=== PATIENT | male | born 1955 | race Caucasian/White ===

== ENCOUNTER 2017-10-16 19:31 | Outpatient (RCR) | payer MEDICARE ==
[~2017-10-16 19:31] MED LIST: ASPI-816; ATOR40TA24 PO; DOCU-416 PO; HYDR-385 PO; LEVO-85 PO; MELA3TAB31 PO; METF-420 PO; NAPR220C12 PO; ONDA4TAB PO; OXYC5TAB38 PO; PHEN200T32 PO; PIOG30TA3 PO; TAMS0.4C70 PO
[2017-10-17] MEDS ORDERED: IOPAMIDOL 76% 75 ML INFUS BTL 75 ML ONE (11:20)
[2017-10-17] MEDS ORDERED: IOPAMIDOL 76% 50 ML INFUS BTL 50 ML ONE (11:20)
--- NOTE | 2017-10-17 13:53 | RADIOLOGY IMAGING REPORT ---
[place] [facility] [place] Ellis Naidu : 1955 MR: [id number] V: [id number] EXAM DATE: ORDERING PHYSICIAN: GIANA GRAY TECHNOLOGIST: Location: [facility] Patient: Ellis Naidu : 1955 Visit/Account:[id number] Date of Sevice: 10/17/2017 ABDOMEN/PELVIS W/WO CONTRAST HISTORY: Gross hematuria, kidney stones TECHNIQUE: Axial images acquired through the abdomen/pelvis both with and without IV contrast.. Sarah nal and sagittal reformatting also performed. Dose Lowering Technique One of the following dose optimization techniques was utilized in the performance of this exam: Autom ated exposure control; adjustment of the mA and/or kV according to the patient's size; or use of an i terative reconstruction technique. Specific details can be referenced in the facility's radiology C T exam operational policy. CONTRAST: 125 mL Isovue-370 COMPARISON: September 29, 2016 FINDINGS: Visualized lung bases: There are moderate coronary artery vascular calcifications Hepatobiliary: Postsurgical changes from a cholecystectomy. Along the dome of the liver there is a 1.4 cm hypoattenuating lesion that does not appear to represent simple cyst. This was not well appre ciated on the prior CT due to lack of intravenous contrast. Spleen: Negative. Adrenals: Negative. Pancreas: Negative. Kidneys ureters and bladder: There are two nonobstructing calculi upper pole calyces of the right kid alvaro measuring two and 3 mm. There is an additional 4 to 5 mm nonobstructing calculus lower pole of t he right kidney. There are two 2 mm nonobstructing calculi lower pole calyx of the left kidney There is a large amount of air noted within the urinary bladder. The bladder wall is slightly thicke nilesh. There also appears to be a small amount of pneumatosis within the left-sided the bladder wall. Bladder is distended to the level the umbilicus. There is also a fluid fluid level within the bladd er suggesting a possible component of blood. Genitalia: There are coarse calcifications within the prostate gland GI: There are postsurgical changes at the right-sided the colon and in several loops of small bowel along the anterior upper abdomen. Vessels/spaces/nodes: Negative. Bones/soft tissues: There is a small right inguinal hernia containing fat. There Are spondylotic ch anges lumbar spine is a small. Small umbilical hernia containing fat Additional findings: None pertinent. IMPRESSION: Post surgical changes from a cholecystectomy. There is a 1.4 cm indeterminate hypoattenuating lesion along the dome of the liver. This could be fu rther evaluated with MR with and without contrast Nonobstructing calculi in the renal collecting systems Large amount of air noted within the urinary bladder. This could be related to recent instrumentatio n although the differential diagnosis would include a vesicle colic fistula or infection with gas-for shweta organism. There is a small amount of air also noted within the irregularly thickened bladder wa ll. There is a fluid fluid level within the bladder suggesting a possible component of blood. Postsurgical changes of the bowel as described above Small right inguinal hernia containing fat and small umbilical hernia containing fat Report Dictated By: Grazyna Swift MD at 10/17/2017 1:27 PM Report E-Signed By: Grazyna Swift MD at 10/17/2017 1:50 PM WSN:[email or web address]
== END 2017-10-17 18:00 | disposition home or self-care (01) ==
LOC: CT 19:31
PROVIDERS: ATTEND Urology
DX: N20.0 Calculus of kidney (principal); N39.0 Urinary tract infection, site not specified; R33.8 Other retention of urine; R31.0 Gross hematuria; Z90.49 Acquired absence of other specified parts of digestive tract; K76.89 Other specified diseases of liver; K40.90 Unilateral inguinal hernia, without obstruction or gangrene, not specified as recurrent; K42.9 Umbilical hernia without obstruction or gangrene
CPT/HCPCS: 36415; 74178; 82565; Q9967

== ENCOUNTER → 2017-11-12 | Outpatient (CLI) | payer MEDICARE ==
[~2017-11-12] MED LIST changes: -ASPI-816; +ASPI-870; +IOPAMIDOL 76% 75 ML INFUS BTL 75 ML ONE
--- NOTE | 2017-11-12 09:35 | RADIOLOGY IMAGING REPORT ---
[place] [facility] [place] Ellis Naidu : 1955 MR: [id number] V: [id number] EXAM DATE: [id number] ORDERING PHYSICIAN: GIANA GRAY TECHNOLOGIST: Location: [facility] Patient: Ellis Naidu : 1955 Visit/Account:[id number] Date of Sevice: 11/12/2017 CT abdomen with and without IV contrast CT pelvis with and without IV contrast History: Incomplete bladder emptying. Urinary tract infections. COMPARISON STUDIES: CT abdomen and pelvis 10/17/2017 TECHNIQUE: Axial CT images were obtained through the abdomen and pelvis prior to and during injecti on of nonionic iodinated intravenous contrast. Reformatted coronal and sagittal images were also obta ined. Imaging of the abdomen and pelvis was performed in the portal venous/nephrogram phase of the co ntrast bolus. Contrast: 75 ml of Isovue-370 IV contrast. One of the following dose optimization techniques was utilized in the performance of this exam: Autom ated exposure control; adjustment of the mA and/or kV according to the patient's size; or use of an i terative reconstruction technique. Specific details can be referenced in the facility's radiology C T exam operational policy. FINDINGS: Chest bases: Negative Liver: Normal. Spleen: size is normal. Gallbladder and bile ducts: Cholecystectomy. Normal sized bile ducts. Pancreas: negative Adrenal glands: negative Kidneys: Two right kidney midpole stones are nonobstructing, the largest measuring 4 mm. Two punctat e stones in the left kidney lower pole are nonobstructing. No renal mass or cyst is seen. Pelvic structures: Partially filled bladder with fluid and gas measures 20 cm length. There is no contrast within the bladder lumen in this phase of CT imaging. A loop of decompressed small bowel is closely opposed to the superior wall of bladder . The colon appears from the bladder wall by a fat plane. No bladder stones are observed. Small prostate gland. Bowel and mesenteries: Periampullary duodenal diverticulum is noted. Postsurgical changes of right h emicolectomy. Small bowel anastomosis in the anterior midabdomen is widely patent. A few descending c olon diverticula are without acute inflammatory change. Ascites: None Vessels: negative Musculoskeletal: Moderate degenerative disc change L2-3 and L5-S1. Body wall: negative Lymph node assessment: negative IMPRESSION: 1. Patulous bladder containing fluid and gas, with no CT evidence of a bowel-bladder fistula, bladde r wall mass or stone. A CT cystogram, and/or CT abdomen and pelvis without IV contrast and orally adm inistered contrast opacifying small bowel and colon may be helpful for further assessment of potentia l fistula, if clinically indicated. 2. Bilateral nonobstructing nephrolithiasis. Report Dictated By: Ofe Pryor MD at 11/12/2017 9:12 AM Report E-Signed By: Ofe Pryor MD at 11/12/2017 9:32 AM WSN:[id number]
== END ==
LOC: CT 02:03
PROVIDERS: ATTEND Urology
DX: N20.0 Calculus of kidney (principal); Z90.49 Acquired absence of other specified parts of digestive tract
CPT/HCPCS: 74178; Q9967

== ENCOUNTER → 2018-05-07 | Outpatient (CLI) | payer MEDICARE ==
[~2018-05-07] MED LIST changes: -IOPAMIDOL 76% 75 ML INFUS BTL 75 ML ONE; -METF-420 PO; +METF-452 PO; -PIOG30TA3 PO; +PIOG30TA71 PO
== END ==
LOC: LAB 10:13
PROVIDERS: ATTEND Urology
DX: Z12.5 Encounter for screening for malignant neoplasm of prostate (principal)
CPT/HCPCS: 36415; G0103; 84153